=== PATIENT | female | born 1930 | race Caucasian/White ===

== ENCOUNTER 2018-02-18 02:35 | Emergency (ER) | payer MEDICARE, OTHER ==
[~2018-02-18] VITALS: Ht 149.9 cm; Wt 68.0 kg
[~2018-02-18 02:35] MED LIST: ALEN1TAB3 PO; ASPI-891 PO; FLUT110HFA IH; FURO20 PO; LEVO88TA4 PO; LISI-661 PO; METO50 PO; MULT-950 PO; PANT40TA25 PO; POTA-9 PO; SIMV-260 PO; TOLT4CAP33 PO; TRAM50TA4 PO
[2018-02-18] MEDS ORDERED: ISOS30TA6 PO (03:59)
[2018-02-18] MEDS ORDERED: [UNRECOGNIZED DRUG - CODE] PO (03:59)
[2018-02-18] MEDS ORDERED: VITAD1000 PO (03:59)
[2018-02-18] MEDS ORDERED: OXYB5 PO (03:59)
[2018-02-18] MEDS ORDERED: ATOR20TA86 PO (03:59)
[2018-02-18] MEDS ORDERED: LISI-662 PO (03:59)
[2018-02-18] MEDS ORDERED: LEVO75 PO (03:59)
[2018-02-18] MEDS ORDERED: OS500 PO (03:59)
[2018-02-18] MEDS ORDERED: ASPI-1182 PO (03:59)
[2018-02-18] MEDS ORDERED: FERR-89 PO (03:59)
[2018-02-18 05:44] LABS: BASOPHILS % (AUTO) 0.6 % (0.0-2.0); EOSINOPHILS % (AUTO) 8.5 % (1.0-6.0); HEMATOCRIT 34.7 % (36-46); HEMOGLOBIN 11.6 g/dL (12.0-16.0); LYMPHOCYTES # (AUTO) 1.1 K/uL (1.0-4.8); LYMPHOCYTES % (AUTO) 10.1 % (22.0-44.0); MEAN CORPUSCULAR HEMOGLOBIN 26.9 pg (26.0-34.0); MEAN CORPUSCULAR HGB CONC 33.3 G/dL (31.0-37.0); MEAN CORPUSCULAR VOLUME 81 fL (80-100); MONOCYTES # (AUTO) 0.6 K/uL (0.1-1.0); MONOCYTES % (AUTO) 5.9 % (2.0-9.0); NEUTROPHILS % (AUTO) 74.9 % (40.0-70.0); PLATELET COUNT (AUTO) 304 K/uL (150-450); RED CELL DISTRIBUTION WIDTH 26.7 % (11.5-14.5)
[2018-02-18 05:47] LABS: ANION GAP 5 mmol/L (8-16); CALCIUM, TOTAL 8.9 mg/dL (8.8-10.5); CARBON DIOXIDE 30 mmol/L (22-29); CHLORIDE 96 mmol/L (98-107); CREATININE 0.73 mg/dL (0.60-1.30); GLOMERULAR FILTR. RATE CALC > 60 mL/min (>60); GLUCOSE,RANDOM 88 mg/dL (70-110); POTASSIUM 4.4 mmol/L (3.5-5.1); SODIUM SERUM 131 mmol/L (136-145); UREA NITROGEN, BLOOD 15 mg/dL (7-18)
[2018-02-18 05:53] LABS: ALANINE AMINOTRANSFERASE 17 U/L (12-78); ALBUMIN 2.9 g/dL (3.4-5.0); ALKALINE PHOSPHATASE 88 U/L (46-116); ASPARTATE AMINOTRANSFERASE 20 U/L (15-37); BILIRUBIN,TOTAL 0.4 mg/dL (0.1-1.0); TOTAL PROTEIN, SERUM 6.3 g/dL (6.4-8.2)
[2018-02-18] MEDS ORDERED: BACITRACIN 0.9 GM PACKET OINTMENT TP ONE (06:15)
[2018-02-18 07:26] VITALS: BP 158/69
== END 2018-02-18 07:54 | disposition home or self-care (01) ==
LOC: EMS 02:38
DX: S51.812A Laceration without foreign body of left forearm, initial encounter (principal); S09.90XA Unspecified injury of head, initial encounter; I11.0 Hypertensive heart disease with heart failure; I50.9 Heart failure, unspecified; J45.909 Unspecified asthma, uncomplicated; I25.10 Atherosclerotic heart disease of native coronary artery without angina pectoris; Z79.82 Long term (current) use of aspirin; Z88.8 Allergy status to other drugs, medicaments and biological substances; W19.XXXA Unspecified fall, initial encounter; Y93.89 Activity, other specified; Y92.89 Other specified places as the place of occurrence of the external cause; Y99.8 Other external cause status
CPT/HCPCS: 70450; 93005; 99285

== ENCOUNTER 2018-02-18 10:18 | Emergency (ER) | payer MEDICARE, OTHER ==
[~2018-02-18] VITALS: Ht 149.9 cm; Wt 55.5 kg
[~2018-02-18 10:18] MED LIST changes: +ASPI-1182 PO; +ATOR20TA86 PO; +FERR-89 PO; +ISOS30TA6 PO; +LEVO75 PO; +LISI-662 PO; +OS500 PO; +OXYB5 PO; +VITAD1000 PO; +[UNRECOGNIZED DRUG - CODE] PO
[2018-02-18 10:47] VITALS: BP 121/65
[2018-02-18] MEDS ORDERED: BACITRACIN 0.9 GM PACKET OINTMENT TP ONE ×2 (10:51→11:00)
== END 2018-02-18 11:37 | disposition home or self-care (01) ==
LOC: EMS 10:19
DX: S61.412A Laceration without foreign body of left hand, initial encounter (principal); S51.812A Laceration without foreign body of left forearm, initial encounter; J45.909 Unspecified asthma, uncomplicated; I25.10 Atherosclerotic heart disease of native coronary artery without angina pectoris; I11.0 Hypertensive heart disease with heart failure; I50.9 Heart failure, unspecified; Z79.82 Long term (current) use of aspirin; Z88.5 Allergy status to narcotic agent; W19.XXXA Unspecified fall, initial encounter; Y93.89 Activity, other specified; Y92.89 Other specified places as the place of occurrence of the external cause; Y99.8 Other external cause status
CPT/HCPCS: 99283